=== PATIENT | female | born 1975 | race Caucasian/White ===

== ENCOUNTER 2023-07-04 17:35 | Emergency (ER) | payer OTHER ==
[~2023-07-04] VITALS: Ht 147.3 cm; Wt 61.2 kg
[2023-07-04] MEDS ORDERED: Acetaminophen 500 MG Tab PO ONE ×2 (18:05→19:55)
[2023-07-04] MEDS ORDERED: Ibuprofen 600 MG Tab PO ONE ×2 (18:05→19:55)
[2023-07-04] MEDS ORDERED: RX Prepack 6 Tabs Oxycodone 5mg UD ONE (20:35)
[2023-07-04] MEDS ORDERED: Percocet 5-3251 EACH PO (20:40)
[2023-07-04 21:05] VITALS: BP 117/84
== END 2023-07-04 21:05 | disposition home or self-care (01) ==
LOC: ER 17:35
DX: S22.41XA Multiple fractures of ribs, right side, initial encounter for closed fracture (principal); V00.141A Fall from scooter (nonmotorized), initial encounter
CPT/HCPCS: 71100; 99283-25; A9270